=== PATIENT | male | born 1955 | race African-American/Black ===

== ENCOUNTER 2017-02-14 13:54 | Inpatient (IN) | payer OTHER ==
[~2017-02-14] VITALS: Ht 182.9 cm; Wt 119.8 kg
[2017-02-14 15:16] VITALS: BP 120/79; PULSE 79; RESP 18; TEMP 98; O2SAT 99
[2017-02-14 16:00] LABS: AUTOMATED NEUTROPHIL # 4.6 TH/MM3 (1.8-7.7); BASOPHIL # 0.1 TH/MM3 (0-0.2); BASOPHIL % 0.8 % (0.0-2.0); EOSINOPHIL # 0.1 TH/MM3 (0-0.4); EOSINOPHIL % 1.1 % (0.0-4.0); HEMATOCRIT 41.8 % (39.0-51.0); HEMO FLAGS DIFF FINAL; LYMPH % 25.4 % (9.0-44.0); MEAN CELL VOLUME 87.3 FL (80.0-100.0); MEAN CORPUSCULAR HEMOGLOBIN 28.3 PG (27.0-34.0); MEAN CORPUSCULAR HGB CONC 32.4 % (32.0-36.0); NEUT % 58.7 % (16.0-70.0); PLATELET COUNT 195 TH/MM3 (150-450); RED BLOOD COUNT 4.78 MIL/MM3 (4.50-5.90); RED CELL DISTRIBUTION WIDTH 14.3 % (11.6-17.2); WHITE BLOOD COUNT 7.8 TH/MM3 (4.0-11.0)
[2017-02-14 16:05] LABS: AMPHETAMINE, URINE NEG (NEG); BARBITURATES, URINE NEG (NEG); COCAINE, URINE NEG (NEG)
[2017-02-14 16:22] LABS: ALT (GPT) 26 U/L (12-78); ANION GAP 6 MEQ/L (5-15); AST (GOT) 29 U/L (15-37); BICARBONATE 29.9 MEQ/L (21.0-32.0); BLOOD UREA NITROGEN 9 MG/DL (7-18); CHLORIDE 104 MEQ/L (98-107); GLOMERULAR FILTRATION RATE 81 ML/MIN (>89); POTASSIUM 3.9 MEQ/L (3.5-5.1); SODIUM (NA) 140 MEQ/L (136-145)
[2017-02-14 16:24] LABS: ACETAMINOPHEN LESS THAN 2.0 MCG/ML (10.0-30.0); ALKALINE PHOSPHATASE 104 U/L (45-117); TOTAL BILIRUBIN ADULT 0.3 MG/DL (0.2-1.0)
--- NOTE | 2017-02-14 16:27 | PD ---
HPI Chief Complaint: Psychiatric Symptoms Time Seen by Provider: 16:15 Travel History International Travel<30 days: No Contact w/Intl Traveler<30days: No Traveled to known affect area: No History of Present Illness HPI 61-year-old male presents under Castellon act [facility] The patient reports over the past few weeks he has been feeling depressed, suicidal. He reports that yesterday evening he mixed all of his pills together and was considering taking them all the same time but his stopped them. Today he saw a psychiatrist [facility] the [facility] and was Castellon acted. The patient denies any recent life stressors. He denies any drug or alcohol use hallucinations, homicidal ideations. He has no medical complaints at this time. [facility] Social History Alcohol Use: No Tobacco Use: No Substance Use: No Allergies-Medications (Allergen,Severity, Reaction): Coded Allergies: No Known Allergies (Unverified , 02/14/17) Review of Systems Except as stated in HPI: all other systems reviewed are Neg Physical Exam Narrative GENERAL: Well-developed well-nourished male in no acute distress answering questions appropriately, pleasant and interactive. SKIN: Warm and dry. HEAD: Atraumatic. Normocephalic. EYES: Pupils equal and round. No scleral icterus. No injection or drainage. ENT: No nasal bleeding or discharge. Mucous membranes pink and moist. NECK: Trachea midline. No JVD. CARDIOVASCULAR: Regular rate and rhythm. No murmur appreciated. RESPIRATORY: No accessory muscle use. Clear to auscultation. Breath sounds equal bilaterally. GASTROINTESTINAL: Abdomen soft, non-tender, nondistended. Hepatic and splenic margins not palpable. MUSCULOSKELETAL: No obvious deformities. No clubbing. No cyanosis. No edema. NEUROLOGICAL: Awake and alert. No obvious cranial nerve deficits. Motor grossly within normal limits. Normal speech. PSYCHIATRIC: Appropriate mood and affect; insight and judgment normal. Data Data Last Documented VS Vital Signs Date Time Temp Pulse Resp B/P Pulse Ox O2 Delivery O2 Flow Rate FiO2 02/14/17 15:16 98.0 79 18 120/79 99 Room Air Orders Complete Blood Count With Diff (02/14/17 15:18) Comprehensive Metabolic Panel (02/14/17 15:18) Psych Screen (02/14/17 15:18) Drug Screen, Random Urine (02/14/17 15:18) Alcohol (Ethanol) (02/14/17 15:18) Salicylates (Aspirin) (02/14/17 15:18) Tylenol (Acetaminophen) (02/14/17 15:18) Diet Regular Basic (02/14/17 Dinner) Labs Laboratory Tests Test 02/14/17 02/14/17 15:00 15:28 Urine Opiates Screen NEG Urine Barbiturates Screen NEG Urine Amphetamines Screen NEG Urine Benzodiazepines Screen NEG Urine Cocaine Screen NEG Urine Cannabinoids Screen NEG White Blood Count 7.8 TH/MM3 Red Blood Count 4.78 MIL/MM3 Hemoglobin 13.6 GM/DL Hematocrit 41.8 % Mean Corpuscular Volume 87.3 FL Mean Corpuscular Hemoglobin 28.3 PG Mean Corpuscular Hemoglobin 32.4 % Concent Red Cell Distribution Width 14.3 % Platelet Count 195 TH/MM3 Mean Platelet Volume 8.4 FL Neutrophils (%) (Auto) 58.7 % Lymphocytes (%) (Auto) 25.4 % Monocytes (%) (Auto) 14.0 % Eosinophils (%) (Auto) 1.1 % Basophils (%) (Auto) 0.8 % Neutrophils # (Auto) 4.6 TH/MM3 Lymphocytes # (Auto) 2.0 TH/MM3 Monocytes # (Auto) 1.1 TH/MM3 Eosinophils # (Auto) 0.1 TH/MM3 Basophils # (Auto) 0.1 TH/MM3 CBC Comment DIFF FINAL Differential Comment Sodium Level 140 MEQ/L Potassium Level 3.9 MEQ/L Chloride Level 104 MEQ/L Carbon Dioxide Level 29.9 MEQ/L Anion Gap 6 MEQ/L Blood Urea Nitrogen 9 MG/DL Creatinine 1.11 MG/DL Estimat Glomerular Filtration 81 ML/MIN Rate Random Glucose 129 MG/DL Calcium Level 9.1 MG/DL Total Bilirubin 0.3 MG/DL Aspartate Amino Transf 29 U/L (AST/SGOT) Alanine Aminotransferase 26 U/L (ALT/SGPT) Alkaline Phosphatase 104 U/L Total Protein 7.9 GM/DL Albumin 3.4 GM/DL Salicylates Level LESS THAN 1.7 MG/DL Acetaminophen Level LESS THAN 2.0 MCG/ML Ethyl Alcohol Level LESS THAN 3 MG/DL MDM Medical Decision Making Medical Screen Exam Complete: Yes Emergency Medical Condition: Yes Medical Record Reviewed: Yes Differential Diagnosis Major depressive disorder, depressive disorder not otherwise specified, acute psychosis, substance induced mood disorder, adjustment reaction Narrative Course 61-year-old male who presents under Castellon act for suicidal thoughts. Mental health screening discussed with the patient. Psychiatric screen ordered. Lab work has been reviewed. Medically cleared for psychiatric disposition. Diagnosis Primary Impression: Suicidal ideation Liu Connell Feb 14, 2017 16:27
[2017-02-14] MEDS ORDERED: BUPR150CR PO (18:39)
[2017-02-14] MEDS ORDERED: MELO-1 PO (18:39)
[2017-02-14] MEDS ORDERED: TRAM50TA PO (18:39)
[2017-02-14] MEDS ORDERED: VIAG100T PO (18:39)
[2017-02-14] MEDS ORDERED: HYDR1CAP30 PO (18:39)
[2017-02-14] MEDS ORDERED: DICL1GEL7 TOPICAL (18:39)
[2017-02-14] MEDS ORDERED: ISOP0.5S EACH EYE (18:39)
[2017-02-14] MEDS ORDERED: SIMV20TA PO (18:39)
[2017-02-14] MEDS ORDERED: BUSP15TA PO (18:39)
[2017-02-14] MEDS ORDERED: TRAZ50TA12 PO (18:39)
[2017-02-14 22:16] VITALS: BP 106/55; PULSE 67; RESP 17; O2SAT 96
[2017-02-15] MEDS ORDERED: LORazepam 1 MG TAB PO PRN (00:30)
[2017-02-15] MEDS ORDERED: traZODone HCL 50 MG TAB PO PRN (00:30)
[2017-02-15] MEDS ORDERED: diphenhydrAMINE HCL 50 MG CAP - HS PRN PO (00:30)
[2017-02-15] MEDS ORDERED: diphenhydrAMINE HCL 50 MG CAP PO PRN (00:30)
[2017-02-15] MEDS ORDERED: hydrOXYzine HCL 50 MG TAB PO PRN (00:30)
[2017-02-15] MEDS ORDERED: diphenhydrAMINE HCL 50 MG/ML VIAL - HS PRN IM (00:30)
[2017-02-15] MEDS ORDERED: ALUMINUM/MAGNESIUM/SIMETH 30 ML CUP PO PRN ×2 (00:30→10:30)
[2017-02-15] MEDS ORDERED: LORazepam 2 MG/ML VIAL IM PRN (00:30)
[2017-02-15] MEDS ORDERED: MAGNESIUM HYDROXIDE SUSP 30 ML CUP PO PRN ×2 (00:30→10:30)
[2017-02-15] MEDS ORDERED: ACETAMINOPHEN 325 MG TAB PO PRN ×2 (00:30→10:30)
[2017-02-15] MEDS ORDERED: diphenhydrAMINE HCL 50 MG/ML VIAL IM PRN (00:30)
[2017-02-15 00:39] VITALS: BP 126/68; PULSE 73; RESP 18; O2SAT 99
[2017-02-15 06:03] VITALS: BP 110/58; PULSE 70; RESP 17; TEMP 97.4; O2SAT 98
[2017-02-15 08:25] LABS: AUTOMATED NEUTROPHIL # 3.7 TH/MM3 (1.8-7.7); BASOPHIL # 0.1 TH/MM3 (0-0.2); BASOPHIL % 1.7 % (0.0-2.0); EOSINOPHIL # 0.1 TH/MM3 (0-0.4); EOSINOPHIL % 1.7 % (0.0-4.0); HEMATOCRIT 43.5 % (39.0-51.0); HEMO FLAGS DIFF FINAL; LYMPH % 24.7 % (9.0-44.0); LYMPHOCYTE # 1.6 TH/MM3 (1.0-4.8); MEAN CELL VOLUME 86.9 FL (80.0-100.0); MEAN CORPUSCULAR HEMOGLOBIN 28.1 PG (27.0-34.0); MEAN CORPUSCULAR HGB CONC 32.3 % (32.0-36.0); NEUT % 56.9 % (16.0-70.0); PLATELET COUNT 218 TH/MM3 (150-450); RED CELL DISTRIBUTION WIDTH 14.5 % (11.6-17.2); WHITE BLOOD COUNT 6.6 TH/MM3 (4.0-11.0)
[2017-02-15] MEDS: NICOTINE 21 MG/24 HR PATCH T-DERMAL SCH (08:47)
[2017-02-15] MEDS: buPROPion HCL 150 MG SUSTAINED RELEASE TAB PO SCH ×2 (08:47→21:57)
[2017-02-15] MEDS: MELOXICAM 15 MG TAB PO SCH (08:47)
[2017-02-15 08:52] LABS: ANION GAP 9 MEQ/L (5-15); BICARBONATE 24.5 MEQ/L (21.0-32.0); BLOOD UREA NITROGEN 8 MG/DL (7-18); CHLORIDE 106 MEQ/L (98-107); GLOMERULAR FILTRATION RATE 89 ML/MIN (>89); POTASSIUM 4.4 MEQ/L (3.5-5.1); SODIUM (NA) 139 MEQ/L (136-145)
[2017-02-15 08:54] LABS: HDL CHOLESTEROL 49.2 MG/DL (40.0-60.0); LDL CHOLESTEROL 81 MG/DL (0-99)
[2017-02-15] MEDS ORDERED: buPROPion HCL 150 MG SUSTAINED RELEASE TAB PO SCH (10:30)
[2017-02-15] MEDS ORDERED: MELOXICAM 15 MG TAB PO SCH (10:30)
[2017-02-15] MEDS ORDERED: [UNRECOGNIZED DRUG - OTHER] EACH EYE PRN (10:30)
[2017-02-15] MEDS ORDERED: [UNRECOGNIZED DRUG - OTHER] TOPICAL SCH (10:30)
[2017-02-15] MEDS ORDERED: traMADol HCL 50 MG TAB PO PRN (10:30)
[2017-02-15] MEDS ORDERED: DICLOFENAC TOPICAL SCH (10:30)
[2017-02-15] MEDS ORDERED: HYPROMELLOSE OPTH EACH EYE PRN (10:30)
[2017-02-15 10:37] LABS: HEMOGLOBIN A1a 0.7 %; HEMOGLOBIN A1b 1.8 %; HEMOGLOBIN P3 3.7 %
--- NOTE | 2017-02-15 10:52 | HHI.HP ---
Provisional Diagnosis Admission Date Feb 14, 2017 at 21:09 [place]. Major depressive disorder recurrent severe with psychotic features f 33.3 Certification of Person's Competence To Provide Express and Informed Consent I have personally examined Jerzy Moreira , a person being served at [facility] on, Feb 15, 2017 10:38. Express and informed consent means consent voluntarily given in writing, by a competent person, after sufficient explanation and disclosure of the subject matter involved to enable the person to make a knowing and willful decision without any element of force, fraud, deceit, duress, or other form of constraint or coercion. This person is 18 years of age or older, is not now known to be incompetent to consent to treatment with a guardian advocate, and does not have a health care surrogate or proxy currently making medical treatment decisions. I have found this person to be one of the following: []xxx Competent to provide express and informed consent, as defined above, for voluntary admission to this facility and is competent to provide express and informed consent for treatment. He/she has the consistent capacity to make well reasoned, willful, and knowing decisions concerning his or her medical or mental health treatment. The person fully and consistently understands the purpose of the admission for examination/placement and is fully capable of personally exercising all rights assured [place] Incompetent to provide express and informed consent to voluntary admission, and this is incompetent to provide express and informed consent to treatment. The person must be transferred to involuntary status and a petition for a guardian advocate filed with the Circuit Court. [] Refusing to provide express and informed consent to voluntary admission but is competent to provide express and informed consent for treatment. The person must be discharged or transferred to involuntary status. Form shall be completed within 24 hours of a person's arrival at the receiving facility and filed in the clinical record of each person: 1. Admitted on a voluntary basis 2. Permitted to provide express and informed consent to his/her own treatment 3. Allowed to transfer from involuntary to voluntary status 4. Prior to permitting a person to consent to his or her own treatment after having been previously found incompetent to consent to treatment. History of Present Illness Capacity: Has Capacity HPI Patient is a 61-year-old Afro-[place] male comes here under Castellon act signed by Colton limon PhD from the outpatient [facility] dated 02/14/17 at 12:40 PM stating PTSD major depression. The document reviewed and agreed with. Also states that the that it is going to take all his pills in a suicide attempt last night. He was prevented from doing that by his he was also not confident he could refrain from suicidal behavior in the near future. Patient seen screened in the ED urine toxicology negative blood: Negative. At the present time patient sitting quietly in his room on 26[address] nurse Cathie and counselor Halley present throughout session patient is calm cooperative with us stating he has been under too much stress relating to the increased suicidal thoughts intent and plan to take all his pills. He acknowledges voices and is having Cassens that along with this. He denies any alcohol or drug use related to this. He states he is an [employer] was in for about 2 years as a medical discharge related to what he states his anxiety and depression. He does acknowledge depression when in the [employer] though he vague about any prior inpatient psychiatric hospitalizations. He is also somewhat slow to answer questions somewhat concrete. He states she's been for 20 years to his present . Though they have no children together. He also states that he may have 45 children by other women though he is not certain of the number. He states he has a son who is in fdc for murder. It appears that son was initially incarcerated at 18 years of age for some type of her discharge and was released recently after 15 years in fdc. Though he minimizes his response to this. He denies any past physical or sexual abuse. Denies any mental health her addictions and his family. He does state he has had some initial and mid insomnia, a.m. anergy, states is a decrease in his concentration and attention, some increased irritability, acknowledges suicidal ideation intent and plan but he denies a willingness to take the suicide pill today, he states he would've take the pill yesterday. He feels fairly hopeless related to this. Patient states he has a GED. The acknowledges continued difficulty with reading and with mathematics. He denies any significant medical issues. In any event at the present time patient is willing to stay voluntarily there further treatment. I feel he does have the capacity to sign voluntary thus I' ll lift the Castellon act allow him to sign voluntary. We will continue his medications per the med reconciliation and add Abilify 5 mg in the morning. Though the hospitalist was consulted with us is on some various medical medications. Hopeless appear fairly short stay and he can return to his family. To follow-up [place] outpatient clinic Review of Systems Constitutional: DENIES: Diaphoretic episodes, Fatigue, Fever, Weight gain, Weight loss, Chills, Dizziness, Change in appetite, Night Sweats Endocrine: DENIES: Heat/cold intolerance, Polydipsia, Polyuria, Polyphagia Eyes: DENIES: Blurred vision, Diplopia, Eye inflammation, Eye pain, Vision loss , Photosensitivity, Double Vision Ears, nose, mouth, throat: DENIES: Tinnitus, Hearing loss, Vertigo, Nasal discharge, Oral lesions, Throat pain, Hoarseness, Ear Pain, Running Nose, Epistaxis, Sinus Pain, Toothache, Odynophagia Respiratory: DENIES: Apneas, Cough, Snoring, Wheezing, Hemoptysis, Sputum production, Shortness of breath Cardiovascular: DENIES: Chest pain, Palpitations, Syncope, Dyspnea on Exertion , PND, Lower Extremity Edema, Orthopnea, Claudication Gastrointestinal: DENIES: Abdominal pain, Black stools, Bloody stools, Constipation, Diarrhea, Nausea, Vomiting, Difficulty Swallowing, Anorexia Genitourinary: DENIES: Sexual dysfunction, Urinary frequency, Urinary incontinence, Urgency, Hematuria, Dysuria, Nocturia, Penile Discharge, Testicular Pain, Testicular Swelling Musculoskeletal: DENIES: Joint pain, Muscle aches, Stiffness, Joint Swelling, Back pain, Neck pain Integumentary: DENIES: Abnormal pigmentation, Nail changes, Pruritus, Rash Hematologic/lymphatic: DENIES: Bruising, Lymphadenopathy Immunologic/allergic: DENIES: Eczema, Urticaria Neurologic: DENIES: Abnormal gait, Headache, Localized weakness, Paresthesias, Seizures, Speech Problems, Tremor, Poor Balance Psychiatric: COMPLAINS OF: Anxiety, Depression, Hallucinations (vague), Suicidal Ideation Past Psych History Psychological trauma history Denies physical or sexual abuse Violence risk - others (6 mos) Low Violence risk - self (6 mos) Moderate to high Substance Abuse History Drugs/Alcohol past 12 months Denies Past Family Social History Coded Allergies: No Known Allergies (Unverified , 02/14/17) Past Medical History Patient denies any significant medical problems except cholesterol Reported Medications Diclofenac Topical 1% Gel1 Applic TOPICAL BID #100 GM Ref 0 02/14/17 Hypromellose Opth Drops (Isopto Tears Opth Drops)0.5% Drops1 Drop EACH EYE Q6H PRN (DRY EYE) #15 ML Ref 0 02/14/17 Simvastatin 20 Mg Tab20 Mg PO HS #30 TAB Ref 0 02/14/17 Bupropion HCl ER 12 HR (Wellbutrin SR 12 HR)150 Mg [id number] Mg PO Q12HR Ref 0 02/14/17 Trazodone 50 Mg Tab50 Mg PO HS #30 TAB Ref 0 02/14/17 Buspirone 15 Mg Tab15 Mg PO BID Ref 0 02/14/17 Hydroxyzine Pamoate 25 Mg Cap25 Mg PO HS PRN (SLEEP) Ref 0 02/14/17 Sildenafil (Viagra)100 Mg Obc054 Mg PO DAILY PRN (ERECTILE DYSFUNCTION) Ref 0 02/14/17 Tramadol 50 Mg Tab50 Mg PO BID PRN (PAIN) Ref 0 02/14/17 Meloxicam 15 Mg Tab15 Mg PO DAILY #30 TAB Ref 0 02/14/17 Current Medications Medications (Trade) Dose Ordered Sig/Jossy Route Start Time Stop Time Status Last Admin (Atarax) 50 mg Q6H PRN PO 02/15/17 00:30 (Benadryl) 50 mg HS PRN PO 02/15/17 00:30 (Desyrel) 50 mg HS PRN PO 02/15/17 00:30 02/15/17 00:31 (Tylenol) 650 mg Q4H PRN PO 02/15/17 00:30 (Milk Of Magnesia Liq) 30 ml DAILY PRN PO 02/15/17 00:30 (Mag-Al Plus Susp Liq) 30 ml Q6H PRN PO 02/15/17 00:30 (Habitrol 21 Mg Patch.24 Hr) 1 patch DAILY T-DERMAL 02/15/17 09:00 Miscellaneous Information 1 HS T-DERMAL 02/15/17 21:00 (Mobic) 15 mg DAILY PO 02/15/17 09:00 02/15/17 08:47 (Wellbutrin Sr) 150 mg Q12HR PO 02/15/17 09:00 02/15/17 08:47 (Pravachol) 40 mg HS PO 02/15/17 21:00 (Abilify) 10 mg DAILY PO 02/15/17 10:30 UNV (Tylenol) 650 mg Q4H PRN PO 02/15/17 10:30 UNV (Milk Of Magnesia Liq) 30 ml DAILY PRN PO 02/15/17 10:30 UNV (Mag-Al Plus Susp Liq) 30 ml Q6H PRN PO 02/15/17 10:30 UNV (Wellbutrin Sr) 150 mg Q12HR PO 02/15/17 10:30 UNV (Buspar) 15 mg BID PO 02/15/17 10:30 UNV (Mobic) 15 mg DAILY PO 02/15/17 10:30 UNV (Ultram) 50 mg BID PRN PO 02/15/17 10:30 UNV (Desyrel) 50 mg HS PO 02/15/17 21:00 UNV Non-Formulary Medication 1 applic BID TOPICAL 02/15/17 10:30 UNV Non-Formulary Medication 1 drop Q6H PRN EACH EYE 02/15/17 10:30 UNV Non-Formulary Medication 20 mg HS PO 02/15/17 21:00 UNV Family History Patient denies any mental health or addictions and family Social History Patient lives with his of about 20 years, due to somewhat confusing story about his offspring Patient's Strengths (min. 2) Patient verbal irritable [facility] cooperative Physical Exam Patient seen screened in ED exam reviewed and agreed with. Patient sitting quietly in his room in no apparent distress, his neck is supple is in no respiratory distress, no abdominal pain, moves all 4 extremities without difficulty no abnormal motor movements noted Vital Signs Vital Signs Date Time Temp Pulse Resp B/P Pulse Ox O2 Delivery O2 Flow Rate FiO2 02/15/17 06:03 97.4 70 17 110/58 98 02/14/17 22:16 Room Air Mental Status Examination Alert oriented [place]ro[place] male sitting calmly with us he is cooperative with poor to fair eye contact Appearance Clean neatly Speech: Unremarkable, Hesitant, Slow Orientation: x3 (though at times somewhat vague) Memory: Unremarkable Thought Process: Linear Thought Content: Unremarkable Language Poor to fair Fund of Knowledge Poor to fair Hallucination Type: Auditory (and vague auditory hallucinations yesterday) Attention and Concentration: Other (there) Suicidal Ideation: Yes Previous Suicide Attempts: Yes (vague) Homicidal Ideation: No Previous Homicide Attempts: No Insight: Poor Judgment: Poor Affect: Other (decreased range intensity) Mood: Sad (and somewhat restricted) Motor Activity: Normal gait Assessment & Plan Problem List: (1) Major depressive disorder, recurrent, severe with psychotic features ICD Code: F33.3 Assessment & Plan Estimated LOS 5-7: days patient meets criteria for acute inpatient psychiatric hospitalization. Though I feel he is capacity to sign for the admission of medication thus I'll lift the Castellon act. We'll continue his medications with him that conciliation and then Abilify 5 mg in the morning. Will have hospice consult with us. Hopeless be fairly short stay [facility] Discharge Planning To be determined Request HC Surrog/Guard Advoc?: No Stew Adams MD Feb 15, 2017 10:51
[2017-02-15] MEDS ORDERED: ARTIFICIAL TEARS OPTH SOLN 15 ML BTL EACH EYE PRN (11:03)
[2017-02-15] MEDS: busPIRone HCL 5 MG TAB PO SCH ×2 (12:17→21:57)
[2017-02-15] MEDS: ARIPiprazole 10 MG TAB PO SCH (12:17)
--- NOTE | 2017-02-15 14:47 | PD.CONS ---
HPI Service [facility] Consult Requested By Psychiatry team Reason for Consult Assist in management of medical condition Primary Care Physician No Primary Care Physician Diagnoses: History of Present Illness Written by Joycelyn Clement, acting as scribe for Dr. Boothe on 02/15/17 at 14: 40. Patient is a pleasant 61 year old male with primary medical history of hyperlipidemia, depression, anxiety who came in under Castellon act initiated by his psychiatrist at the [facility]. Patient is now admitted to inpatient psychiatry unit for further evaluation. Consulted for medical management. Patient seen and examined today. Reports that over the past few weeks he has been depressed and wanting to take 30 of his pills altogether. States he woke up today feeling better. Reports he has no other medical history aside from high cholesterol. Denies any tobacco, alcohol, drug use. Denies any hallucinations, suicidal ideations and homicidal ideations. Denies any medical complaints. Denies pain and discomfort. Denies SOB/ dyspnea. Denies chest pain , palpitations, headaches, dizziness. Denies fevers, chills, n/v/d. Denies hematuria, dysuria. Review of Systems Constitutional: DENIES: Fatigue, Fever, Weight gain, Chills, Dizziness, Change in appetite Eyes: DENIES: Blurred vision Ears, nose, mouth, throat: DENIES: Hearing loss, Vertigo, Throat pain Respiratory: DENIES: Cough, Wheezing Cardiovascular: DENIES: Chest pain, Palpitations Gastrointestinal: DENIES: Abdominal pain Genitourinary: DENIES: Urinary frequency, Urinary incontinence, Urgency, Dysuria Musculoskeletal: DENIES: Joint pain Immunologic/allergic: DENIES: Urticaria Psychiatric: COMPLAINS OF: Anxiety, Depression Except as stated in HPI: all other systems reviewed are Neg Past Family Social History Allergies: Coded Allergies: No Known Allergies (Unverified , 02/14/17) Past Medical History Hyperlipidemia on simvastatin Anxiety Depression Past Surgical History None Reported Medications Reported Meds & Active Scripts Active Reported Diclofenac Topical 1% Gel 1 Applic TOPICAL BID Isopto Tears Opth Drops (Hypromellose) 0.5% Drops 1 Drop EACH EYE Q6H PRN Simvastatin 20 Mg Tab 20 Mg PO HS Wellbutrin SR 12 HR (Bupropion HCl) 150 Mg Tab 150 Mg PO Q12HR Trazodone (Trazodone HCl) 50 Mg Tab 50 Mg PO HS Buspirone (Buspirone HCl) 15 Mg Tab 15 Mg PO BID Hydroxyzine Pamoate 25 Mg Cap 25 Mg PO HS PRN Viagra (Sildenafil Citrate) 100 Mg Tab 100 Mg PO DAILY PRN Tramadol (Tramadol HCl) 50 Mg Tab 50 Mg PO BID PRN Meloxicam 15 Mg Tab 15 Mg PO DAILY Active Ordered Medications Current Medications Medications (Trade) Dose Ordered Sig/Jossy Route Start Time Stop Time Status Last Admin (Atarax) 50 mg Q6H PRN PO 02/15/17 00:30 (Benadryl) 50 mg HS PRN PO 02/15/17 00:30 (Tylenol) 650 mg Q4H PRN PO 02/15/17 00:30 (Milk Of Magnesia Liq) 30 ml DAILY PRN PO 02/15/17 00:30 (Mag-Al Plus Susp Liq) 30 ml Q6H PRN PO 02/15/17 00:30 (Habitrol 21 Mg Patch.24 Hr) 1 patch DAILY T-DERMAL 02/15/17 09:00 Miscellaneous Information 1 HS T-DERMAL 02/15/17 21:00 (Mobic) 15 mg DAILY PO 02/15/17 09:00 02/15/17 08:47 (Wellbutrin Sr) 150 mg Q12HR PO 02/15/17 09:00 02/15/17 08:47 (Pravachol) 40 mg HS PO 02/15/17 21:00 (Abilify) 10 mg DAILY PO 02/15/17 10:30 02/15/17 12:17 (Buspar) 15 mg BID PO 02/15/17 10:30 02/15/17 12:17 (Ultram) 50 mg BID PRN PO 02/15/17 10:30 (Desyrel) 50 mg HS PO 02/15/17 21:00 Patient Own Medication 1 ea BID TOPICAL 02/15/17 10:30 Hold (Tears Naturale Opth Soln) 1 drop Q6H PRN EACH EYE 02/15/17 11:03 Family History Denies any family medical history. States this family is healthy. Social History Denies alcohol use Denies tobacco use Denies illicit drug use Physical Exam Vital Signs Vital Signs Date Time Temp Pulse Resp B/P Pulse Ox O2 Delivery O2 Flow Rate FiO2 02/15/17 06:03 97.4 70 17 110/58 98 02/15/17 00:39 73 18 126/68 99 02/14/17 22:16 67 17 106/55 96 Room Air 02/14/17 15:16 98.0 79 18 120/79 99 Room Air Physical Exam GENERAL: This is a well-nourished, well-developed patient, in no apparent distress. SKIN: No rashes, ecchymoses or lesions. Warm and dry. HEAD: Atraumatic. Normocephalic. No temporal or scalp tenderness. EYES: Pupils equal round and reactive. Extraocular motions intact. No scleral icterus. No injection or drainage. ENT: Nose without bleeding. Throat without erythema. Uvula midline. Airway patent. NECK: Trachea midline. No JVD or lymphadenopathy. CARDIOVASCULAR: Regular rate and rhythm without murmurs, gallops, or rubs. RESPIRATORY: Clear to auscultation. Breath sounds equal bilaterally. No wheezes , rales, or rhonchi. GASTROINTESTINAL: Abdomen soft, non-tender, nondistended. Bowel sounds active 4. MUSCULOSKELETAL: Extremities without clubbing, cyanosis, or edema. No joint tenderness, effusion, or edema noted. NEUROLOGICAL: Awake and alert. Oriented to person, place, time.. Motor and sensory grossly within normal limits. Five out of 5 muscle strength in all muscle groups. Normal speech. Laboratory Laboratory Tests Test 02/14/17 02/14/17 02/15/17 15:00 15:28 07:52 Urine Opiates Screen NEG Urine Barbiturates Screen NEG Urine Amphetamines Screen NEG Urine Benzodiazepines Screen NEG Urine Cocaine Screen NEG Urine Cannabinoids Screen NEG White Blood Count 7.8 6.6 Red Blood Count 4.78 5.00 Hemoglobin 13.6 14.1 Hematocrit 41.8 43.5 Mean Corpuscular Volume 87.3 86.9 Mean Corpuscular Hemoglobin 28.3 28.1 Mean Corpuscular Hemoglobin 32.4 32.3 Concent Red Cell Distribution Width 14.3 14.5 Platelet Count 195 218 Mean Platelet Volume 8.4 8.6 Neutrophils (%) (Auto) 58.7 56.9 Lymphocytes (%) (Auto) 25.4 24.7 Monocytes (%) (Auto) 14.0 15.0 Eosinophils (%) (Auto) 1.1 1.7 Basophils (%) (Auto) 0.8 1.7 Neutrophils # (Auto) 4.6 3.7 Lymphocytes # (Auto) 2.0 1.6 Monocytes # (Auto) 1.1 1.0 Eosinophils # (Auto) 0.1 0.1 Basophils # (Auto) 0.1 0.1 CBC Comment DIFF FINAL DIFF FINAL Differential Comment Sodium Level 140 139 Potassium Level 3.9 4.4 Chloride Level 104 106 Carbon Dioxide Level 29.9 24.5 Anion Gap 6 9 Blood Urea Nitrogen 9 8 Creatinine 1.11 1.03 Estimat Glomerular Filtration 81 89 Rate Random Glucose 129 108 Calcium Level 9.1 9.6 Total Bilirubin 0.3 Aspartate Amino Transf 29 (AST/SGOT) Alanine Aminotransferase 26 (ALT/SGPT) Alkaline Phosphatase 104 Total Protein 7.9 Albumin 3.4 Salicylates Level LESS THAN 1.7 Acetaminophen Level LESS THAN 2.0 Ethyl Alcohol Level LESS THAN 3 Hemoglobin A1c 6.2 Triglycerides Level 123 Cholesterol Level 155 LDL Cholesterol 81 HDL Cholesterol 49.2 Cholesterol/HDL Ratio 3.15 Result Diagram: 02/15/17 0752 02/15/17 0752 Assessment and Plan Problem List: (1) Suicidal ideation ICD Code: R45.851 Status: Acute (2) Major depressive disorder, recurrent, severe with psychotic features ICD Code: F33.3 Status: Acute (3) HLD (hyperlipidemia) ICD Code: E78.5 Status: Chronic Assessment and Plan Patient is a pleasant 61 year old male with primary medical history of hyperlipidemia, depression, anxiety who came in under Castellon act [facility] Patient is now admitted to inpatient psychiatry unit for further evaluation. Consulted for medical management. Suicidal ideation, major depression - managed by psychiatry team Hyperlipidemia - Continue with home medications simvastatin - Labs reviewed, lipid panel within normal possibly secondary to medication compliance Prediabetes - Hemoglobin A1c 6.2 - Discuss extensively with patient results of lab and condition. Discuss needed lifestyle changes including dietary change, weight loss, and exercise. Discuss need to follow-up with PCP to repeat hemoglobin A1c in 3 months. - May benefit starting metformin low-dose. Patient will consider weight loss and dietary changes prior to starting medication. DVT prop ambulatory Thank you for this consultation. Stable from Hospitalist standpoint. We will sign off. Reconsult as needed. This note was transcribed by scribe [Joycelyn Clement]. I, Dr. Radha Boothe personally performed the history, physical exam, and medical decision making; and confirmed the accuracy of the information in the transcribed note. Authenticated by Dr. Radha Boothe on 02/15/17 at 1450. Code Status Full code Discussed Condition With Patient, nursing Joycelyn Abbasi Feb 15, 2017 14:47 Radha Boothe MD Feb 15, 2017 20:49
[2017-02-15 18:00] VITALS: BP 116/82; PULSE 70; RESP 18; TEMP 98.6; O2SAT 98
[2017-02-15] MEDS ORDERED: PRAVASTATIN SOD 40 MG TAB PO SCH (21:00)
[2017-02-15] MEDS: REMOVE OLD NICOTINE PATCH T-DERMAL SCH (21:00)
[2017-02-15] MEDS: traZODone HCL 50 MG TAB PO SCH (21:57)
[2017-02-15] MEDS: PRAVASTATIN SOD 40 MG TAB PO SCH (21:58)
[2017-02-16 06:03] VITALS: BP 112/72; PULSE 68; RESP 20; TEMP 98.3; O2SAT 98
[2017-02-16] MEDS: busPIRone HCL 5 MG TAB PO SCH ×2 (08:53→20:33)
[2017-02-16] MEDS: ARIPiprazole 10 MG TAB PO SCH (08:53)
[2017-02-16] MEDS: MELOXICAM 15 MG TAB PO SCH (08:53)
[2017-02-16] MEDS: NICOTINE 21 MG/24 HR PATCH T-DERMAL SCH (08:54)
[2017-02-16] MEDS: buPROPion HCL 150 MG SUSTAINED RELEASE TAB PO SCH ×2 (08:54→20:33)
--- NOTE | 2017-02-16 13:00 | HHI.PYPN ---
Subjective Remarks Patient seen in his room with nurse Cathie, patient mood is somewhat improved stating he is feeling better, he had a visit from his that appears to been quite positive and supportive. He denies suicidality homicidality. States he is not upset or focusing on his relationship for the situation with this young son. He is compliant with medications. For now continue observation assessment consider discharge in the next 24-48 hours. With follow-up through the [facility] Review of Systems Except as stated in HPI: all other systems reviewed are Neg Objective Alert: Yes [place]: Person, Place, Date Mood: Calm, Depressed (lifting) Affect: Other (good range and intensity) Memory Intact: Comment (they are) Hallucinations: Other (denies) Delusions: No Delusion Type: Other (denies) Suicidal: Ideation (denies) Homicidal: Ideation (denies) Insight/Judgment Poor Vitals/IOs Vital Signs Date Time Temp Pulse Resp B/P Pulse Ox O2 Delivery O2 Flow Rate FiO2 02/16/17 06:03 98.3 68 20 112/72 98 02/14/17 22:16 Room Air Intake and Output 02/15/17 02/15/17 02/16/17 08:00 16:00 00:00 Intake Total 240 ml Balance 240 ml Assessment & Plan Problem List: (1) Major depressive disorder, recurrent, severe with psychotic features ICD Code: F33.3 Assessment & Plan Estimated LOS: days patient mood is improving somewhat, compliant medications. For now continue treatment consider discharge next 24-48 hours Justification for Cont. Inpt. At this time patient decompensate placed in a lower level of care Discharge Planning To be determined Request HC Surrog/Guard Advoc?: No Stew Adams MD Feb 16, 2017 12:59
[2017-02-16 17:56] VITALS: BP 117/77; PULSE 80; RESP 19; TEMP 97.4; O2SAT 97
[2017-02-16] MEDS: PRAVASTATIN SOD 40 MG TAB PO SCH (20:33)
[2017-02-16] MEDS: traZODone HCL 50 MG TAB PO SCH (20:33)
[2017-02-16] MEDS: REMOVE OLD NICOTINE PATCH T-DERMAL SCH (20:33)
[2017-02-17 05:16] VITALS: BP 103/65; PULSE 71; RESP 16; TEMP 97.4; O2SAT 100
[2017-02-17] MEDS: ARIPiprazole 10 MG TAB PO SCH (08:31)
[2017-02-17] MEDS: MELOXICAM 15 MG TAB PO SCH (08:32)
[2017-02-17] MEDS: busPIRone HCL 5 MG TAB PO SCH (08:32)
[2017-02-17] MEDS: NICOTINE 21 MG/24 HR PATCH T-DERMAL SCH (08:34)
[2017-02-17] MEDS: buPROPion HCL 150 MG SUSTAINED RELEASE TAB PO SCH (08:34)
[2017-02-17] MEDS ORDERED: ARIP1TAB12 PO (13:07)
[2017-02-17] MEDS ORDERED: PRAV40TA PO (13:07)
[2017-02-17] MEDS ORDERED: MELO-1 PO (13:07)
[2017-02-17] MEDS ORDERED: BUSP15TA PO (13:07)
[2017-02-17] MEDS ORDERED: TRAZ50TA12 PO (13:07)
[2017-02-17] MEDS ORDERED: BUPR150CR PO (13:07)
--- NOTE | 2017-02-17 13:13 | HHI.DS ---
Psychiatry Discharge Summary Inpatient Psychiatric care?: Yes Advance Directive: Yes Mental Health AdvanceDirective: No Health Care Proxy: No Admission Admission Date Feb 14, 2017 at 21:09 Admission Diagnosis: (1) Major depressive disorder, recurrent, severe with psychotic features ICD Code: F33.3 Brief History Patient is a 61-year-old Afro-Turkmen male comes here under Castellon act signed by Colton limon PhD from the outpatient [place] [facility] dated 02/14/17 at 12:40 PM stating PTSD major depression. The document reviewed and agreed with. Also states that the that it is going to take all his pills in a suicide attempt last night. He was prevented from doing that by his he was also not confident he could refrain from suicidal behavior in the near future. Patient seen screened in the ED urine toxicology negative blood: Negative. At the present time patient sitting quietly in his room on 2600 nurse Cathie and counselor Halley present throughout session patient is calm cooperative with us stating he has been under too much stress relating to the increased suicidal thoughts intent and plan to take all his pills. He acknowledges voices and is having Cassens that along with this. He denies any alcohol or drug use related to this. He states he is an [employer] was in for about 2 years as a medical discharge related to what he states his anxiety and depression. He does acknowledge depression when in the [employer] though he vague about any prior inpatient psychiatric hospitalizations. He is also somewhat slow to answer questions somewhat concrete. He states she's been for 20 years to his present . Though they have no children together. He also states that he may have 45 children by other women though he is not certain of the number. He states he has a son who is in detention for murder. It appears that son was initially incarcerated at 18 years of age for some type of her discharge and was released recently after 15 years in detention. Though he minimizes his response to this. He denies any past physical or sexual abuse. Denies any mental health her addictions and his family. He does state he has had some initial and mid insomnia, a.m. anergy, states is a decrease in his concentration and attention, some increased irritability, acknowledges suicidal ideation intent and plan but he denies a willingness to take the suicide pill today, he states he would've take the pill yesterday. He feels fairly hopeless related to this. Patient states he has a GED. The acknowledges continued difficulty with reading and with mathematics. He denies any significant medical issues. In any event at the present time patient is willing to stay voluntarily there further treatment. I feel he does have the capacity to sign voluntary thus I' ll lift the Castellon act allow him to sign voluntary. We will continue his medications per the med reconciliation and add Abilify 5 mg in the morning. Though the hospitalist was consulted with us is on some various medical medications. Hopeless appear fairly short stay and he can return to his family. To follow-up [place] outpatient clinic Tobacco Use In Past 30 Days: No Tobacco Past 30 Days Alcohol Use: Never Hospital Course Patient course in hospital was uneventful is compliant with medications from admission. His mood is resolved his had good communication with his . He now denies suicidality homicidality voices or visions. At the present time patient no longer meets criteria for inpatient psychiatric hospitalization. Patient to be [facility] today [facility] Results Blood Pressure 103 / 65 Vital Signs Date Time Temp Pulse Resp B/P Pulse Ox O2 Delivery O2 Flow Rate FiO2 02/17/17 05:16 97.4 71 16 103/65 100 02/14/17 22:16 Room Air Laboratory Tests Test 02/14/17 02/15/17 15:28 07:52 Monocytes (%) (Auto) 14.0 % 15.0 % (0.0-8.0) (0.0-8.0) Monocytes # (Auto) 1.1 TH/MM3 1.0 TH/MM3 (0-0.9) (0-0.9) Estimat Glomerular Filtration 81 ML/MIN (>89) Rate Random Glucose 129 MG/DL 108 MG/DL (74-106) (74-106) Salicylates Level LESS THAN 1.7 MG/DL (2.8-20.0) Acetaminophen Level LESS THAN 2.0 MCG/ML (10.0-30.0) Hemoglobin A1c 6.2 % (4.3-6.0) Laboratory Results Test 02/15/17 07:52 Hemoglobin A1c 6.2 % (4.3-6.0) Triglycerides Level 123 MG/DL (42-150) Cholesterol Level 155 MG/DL (120-200) LDL Cholesterol 81 MG/DL (0-99) HDL Cholesterol 49.2 MG/DL (40.0-60.0) Summary of Procedures None done Pending results at discharge: No Medications # of Antipsychotic meds at D/C: 1 Approp Antipsych med options 1 - Minimum of three failed multiple trials of monotherapy. 2 - Documented plan to taper to monotherapy due to previous use of multiple meds OR cross-taper in progress at D/C. 3 - Documentation of augmentation of Clozapine. 4 - Justification other than those listed in allowable values 1-3, document here : Discharge Discharge Date: Feb 17, 2017 Discharge Diagnosis: (1) Major depressive disorder, recurrent, severe with psychotic features Diagnosis: Principal ICD Code: F33.3 Mental Status Exam at Disch Alert oriented Afro-Turkmen male sitting quietly in his room. His normal active. His mood is euthymic to mildly dysphoric with good range intensity of his affect. Speech rate and rhythm within normal limits though no formal thought disorders. No Auditory or visual hallucinations. No delusions. Insight and judgment is fair cognition grossly intact Pt Condition on Discharge: Stable Discharge Disposition: Discharge Home Discharge Instructions Diet Instructions: As Tolerated, No Restrictions Activities you can perform: Regular-No Restrictions Scheduled Appointment: [facility] ([place]) Appointment Date: Feb 18, 2017 Appointment Time: 2:00pm Discharge Time > 30 minutes Discharge/Advance Care Plan Health Problems: (1) Major depressive disorder, recurrent, severe with psychotic features Goals to promote your health * To prevent worsening of your condition and complications * To maintain your health at the optimal level Directions to meet your goals Take your medications as prescribed Follow your dietary instruction Follow activity as directed Keep your appointments as scheduled Take your immunizations and boosters as scheduled If your symptoms worsen call your PCP, if no PCP go to Urgent Care Center or Emergency Room For 28/03 questions related to your inpatient stay or results of tests pending at discharge, please contact Dr. Stew Adams at Smoking is Dangerous to Your Health. Avoid second hand smoking Stew Adams MD Feb 17, 2017 13:13
== END 2017-02-17 13:45 | disposition home or self-care (01) | DRG 885 ==
LOC: NEPJ 13:54 → NEDA 21:09 → H260 02-15 00:06
PROVIDERS: ADMIT Psychiatry & Neurology Psychiatry; ATTEND Psychiatry & Neurology Psychiatry
DX: F33.3 Major depressive disorder, recurrent, severe with psychotic symptoms (principal); R45.851 Suicidal ideations; F41.9 Anxiety disorder, unspecified; E78.5 Hyperlipidemia, unspecified; R73.03 Prediabetes; Z87.891 Personal history of nicotine dependence
CPT/HCPCS: 80048; 80053; 80061; 80307; 83036; 85025